=== PATIENT | female | born 1990 | race Caucasian/White ===

== ENCOUNTER → 2016-06-18 | Outpatient (REF) | payer BC | LOC: M LAB REF 16:29 | PROVIDERS: ATTEND Surgery | DX: Z02.89 Encounter for other administrative examinations (principal) ==

== ENCOUNTER → 2016-06-19 | Outpatient (CLI) | payer BC ==
[2016-06-19 14:20] LABS: BASO % 0.5 % (0.0-1.0); EOS % 0.6 % (0.0-3.0); LARGE UNSTAINED CELL # 0.2 K/mm3 (0.0-0.4); LARGE UNSTAINED CELL % 2.2 % (0.0-4.0); LYMPH % 28.2 % (24.0-44.0); MEAN CORPUSCULAR HEMOGLOBIN 31.2 pg (27.0-33.0); MEAN CORPUSCULAR HGB CONC 33.9 g/dl (32.0-36.5); MEAN CORPUSCULAR VOLUME 92.2 fl (80.0-96.0); MONO # 0.5 K/mm3 (0.0-0.8); MONO % 7.2 % (0.0-5.0); NEUTROPHILS # 4.3 K/mm3 (1.8-7.7); NEUTROPHILS % 61.3 % (36.0-66.0); PLATELET COUNT, AUTOMATED 399 k/mm3 (150-450); RED CELL DISTRIBUTION WIDTH 12.6 % (11.5-14.5)
[2016-06-20 10:30] LABS: HBsAg Prenatal NEGATIVE (NEGATIVE)
== END ==
LOC: M SMT 08:16
PROVIDERS: ATTEND Advanced Practice Midwife
DX: Z34.81 Encounter for supervision of other normal pregnancy, first trimester (principal)

== ENCOUNTER → 2016-08-17 | Outpatient (REF) | payer BC ==
[2016-08-17 18:07] LABS: FOLATE > 24.0 NG/ML (>5.4); VITAMIN B12 LEVEL 291 PG/ML (247-911)
[2016-08-24 12:12] LABS: PRETREATED FOLATE FOR RBCFOL 14.4 NG/ML
== END ==
LOC: M LAB REF 16:31
PROVIDERS: ATTEND Surgery
DX: O99.012 Anemia complicating pregnancy, second trimester (principal)

== ENCOUNTER → 2016-09-13 | Outpatient (CLI) | payer BC ==
--- NOTE | 2016-09-14 03:36 | REP ---
Clinical: Anatomical evaluation. Comparison: None . Findings: Examination demonstrates a single live intrauterine in breech presentation. motion is identified by technologist. Placenta is noted posteriorly and grade zero without evidence for placenta previa or abruption. Amniotic fluid volume is normal. Cervix measures 4.2 cm in length and appears closed. No evidence for nuchal cord. Gestational age by LMP 18 weeks 6 days with VALERIE 02/08/2017 . Gestational age by current measurements 18 weeks 5 days with VALERIE 02/09/2017 . FHR equals 160 beats per minute. BPD 4.3 cm 19 weeks 0 days HC 16.2 cm 19 weeks 0 days AC 15.2 cm 20 weeks 3-day FL 2.8 cm 18 weeks 4 days HL 2.6 cm 18 weeks 2 days HC/AC ratio 1.07 Estimated weight 295 grams ( 69th percentile). Anatomical assessment demonstrates normal structures including cranium, choroid plexus, cavum, cerebellum/posterior fossa, facial features, lungs, four-chamber heart/ventricular outflow tracts, diaphragm, stomach, cord insertion/three-vessel cord, kidneys/bladder, spine, and extremities. Impression: Single live intrauterine in breech presentation demonstrating appropriate interval growth. Anatomical assessment is complete and normal. Signed by Reji Ramos MD 09/14/2016 03:27 A
== END ==
LOC: M RAD 07:50
PROVIDERS: ATTEND Specialist
DX: Z34.82 Encounter for supervision of other normal pregnancy, second trimester (principal); Z3A.18 18 weeks gestation of pregnancy

== ENCOUNTER → 2016-11-06 | Outpatient (CLI) | payer BC ==
[2016-11-06 18:18] LABS: BASO % 0.3 % (0.0-1.0); EOS # 0.1 K/mm3 (0.0-0.50); EOS % 0.7 % (0.0-3.0); LARGE UNSTAINED CELL # 0.1 K/mm3 (0.0-0.4); LARGE UNSTAINED CELL % 0.9 % (0.0-4.0); LYMPH # 1.9 K/mm3 (1.5-6.5); LYMPH % 15.9 % (24.0-44.0); MEAN CORPUSCULAR HEMOGLOBIN 31.2 pg (27.0-33.0); MEAN CORPUSCULAR HGB CONC 33.5 g/dl (32.0-36.5); MEAN CORPUSCULAR VOLUME 93.1 fl (80.0-96.0); MONO # 0.5 K/mm3 (0.0-0.8); MONO % 4.2 % (0.0-5.0); NEUTROPHILS # 8.8 K/mm3 (1.8-7.7); NEUTROPHILS % 78.1 % (36.0-66.0); PLATELET COUNT, AUTOMATED 370 k/mm3 (150-450); RED CELL DISTRIBUTION WIDTH 13.9 % (11.5-14.5); WHITE BLOOD COUNT 11.3 K/mm3 (4.0-10.0)
== END ==
LOC: M LRY 09:23
PROVIDERS: ATTEND Obstetrics & Gynecology
DX: Z34.83 Encounter for supervision of other normal pregnancy, third trimester (principal)

== ENCOUNTER → 2017-01-15 | Outpatient (REF) | payer BC | LOC: M LAB REF 17:22 | PROVIDERS: ATTEND Obstetrics & Gynecology | DX: Z34.83 Encounter for supervision of other normal pregnancy, third trimester (principal) ==

== ENCOUNTER 2017-01-28 11:35 | Outpatient (CLI) | payer BC ==
[~2017-01-28] VITALS: Ht 154.9 cm; Wt 91.9 kg
[2017-01-28] MEDS ORDERED: PRENTAB9 PO (11:56)
[2017-01-28 12:01] VITALS: BP 137/91
[2017-01-28 12:10] VITALS: BP 136/86
[2017-01-28 12:51] LABS: MEAN CORPUSCULAR HEMOGLOBIN 30.3 pg (27.0-33.0); MEAN CORPUSCULAR HGB CONC 34.1 g/dl (32.0-36.5); MEAN CORPUSCULAR VOLUME 88.8 fl (80.0-96.0); PLATELET COUNT, AUTOMATED 325 10^3/uL (150-450); RED CELL DISTRIBUTION WIDTH 13.2 % (11.5-14.5); WHITE BLOOD COUNT 10.2 10^3/uL (4.0-10.0)
[2017-01-28 13:17] LABS: ALT/SGPT 14 U/L (12-78); AST/SGOT 18 U/L (7-37); BILIRUBIN,TOTAL 0.3 MG/DL (0.2-1.0); CREATININE FOR GFR 0.47 MG/DL (0.55-1.02); GLOMERULAR FILTRATION RATE > 60.0 (>60); URIC ACID 5.5 MG/DL (2.6-6.0)
[2017-01-28 13:19] VITALS: BP 131/77
[2017-01-28 14:20] VITALS: BP 136/82
[2017-01-28 15:24] VITALS: BP 131/82
== END 2017-01-28 15:55 | disposition home or self-care (01) ==
LOC: M LDO 11:35
PROVIDERS: ATTEND Advanced Practice Midwife
DX: O26.893 Other specified pregnancy related conditions, third trimester (principal); Z3A.38 38 weeks gestation of pregnancy; R03.0 Elevated blood-pressure reading, without diagnosis of hypertension; O13.3 Gestational [pregnancy-induced] hypertension without significant proteinuria, third trimester; Z88.0 Allergy status to penicillin; Z91.040 Latex allergy status

== ENCOUNTER 2017-01-29 17:54 | Inpatient (IN) | payer BC ==
[~2017-01-29] VITALS: Ht 154.9 cm; Wt 94.1 kg
[2017-01-29] VITALS (11 sets, daily range): BP systolic 125–140; BP diastolic 75–90
[~2017-01-29 17:54] MED LIST changes: -ACET50TA PO; -COLA100C5 PO; -IBUP-1114 PO
[2017-01-29] MEDS: miSOPROStol 50 MCG 1/2 TAB (S0191) SL SCH ×2 (19:25→23:02)
[2017-01-29 19:45] LABS: MEAN CORPUSCULAR HEMOGLOBIN 30.4 pg (27.0-33.0); MEAN CORPUSCULAR HGB CONC 34.1 g/dl (32.0-36.5); MEAN CORPUSCULAR VOLUME 89.2 fl (80.0-96.0); PLATELET COUNT, AUTOMATED 350 10^3/uL (150-450); RED CELL DISTRIBUTION WIDTH 13.4 % (11.5-14.5); WHITE BLOOD COUNT 11.5 10^3/uL (4.0-10.0)
--- NOTE | 2017-01-29 19:52 | HPE ---
DATE OF ADMISSION: 01/29/2017 26-year-old G1, P0 female 38-4/7 weeks gestation by 9 week ultrasound, estimated date of delivery (EDC) of 02/08/2017 presents for labor induction. Indication for induction less than 39 weeks is gestational hypertension. The patient denies contractions or vaginal bleeding. COURSE: The patient initiated care at 10 weeks of gestation on 07/06/2016. Her first trimester blood pressure was 118/70, weight 164 pounds. Her blood pressures were normal until 01/28/2017 when she had a blood pressure of 160/92 in the office. She was monitored in the hospital and sent home. The following day her blood pressure continued to be elevated at 146/96. A decision was made to proceed with labor induction. MEDICAL HISTORY: Noncontributory. SURGICAL HISTORY: [place] teeth removal. ALLERGIES: LATEX. AMOXICILLIN. SOCIAL HISTORY: The patient is . She lives in [place]. She denies cigarettes, alcohol, or drug use. FAMILY HISTORY: Noncontributory. PHYSICAL EXAMINATION: Blood pressure 140/90, pulse 84. She is in no apparent distress. Head and neck: Normal with the exception of some facial edema. Lungs are clear to auscultation. Heart: Regular rate and rhythm. Abdomen is nontender, gravid. heart sounds are category I. Sterile vaginal exam: 2 cm, 80%, - 2 station, posterior. Contractions: None. Extremities: Nontender with trace edema. LABS: Blood type is A+, rubella immune, RPR nonreactive. Diabetes screen: 120. GBS negative 01/15/2017. ASSESSMENT: 26-year-old G1, P0 female at 38-4/7 weeks gestation with gestational hypertension. The patient is admitted on 01/29/2017. Risks of induction were discussed.
[2017-01-29] MEDS ORDERED: LR 1,000 ML IV SCH (22:53)
[2017-01-29] MEDS ORDERED: OXYTOCIN DRIP 30 UNITS in APPROPRIATE DILUENT 1 EA IV SCH (23:00)
[2017-01-30] VITALS (27 sets, daily range): BP systolic 108–152; BP diastolic 58–92
[2017-01-30] MEDS ORDERED: FENTANYL 2MCG/ML ROPIVACAINE 0.2% IN 0.9% NACL 200ML IVBAG As Ordered ONE (00:03)
[2017-01-30] MEDS ORDERED: NALOXONE INJ 0.4 MG/1 ML VIAL (J2310) IV PRN (00:20)
[2017-01-30] MEDS ORDERED: LACTATED RINGER'S 1000 ML IV PRN (00:20)
[2017-01-30] MEDS ORDERED: EPIDURAL COMMENT XX SCH (00:20)
[2017-01-30] MEDS ORDERED: EPIDURAL/PCA KEYS XX PRN (00:20)
[2017-01-30] MEDS ORDERED: ONDANSETRON 4MG/2ML VIAL (J2405) IV PRN (00:20)
[2017-01-30] MEDS ORDERED: ePHEDrine SULFATE 25 MG/5 ML(5MG/ML) SYRINGE IV PRN (00:20)
[2017-01-30] MEDS ORDERED: FENTANYL/ROPIVACAINE/NACL BAG 200 ML EPIDURAL SCH (00:20)
[2017-01-30] MEDS ORDERED: REFRIGERATOR IV KEYS XX PRN (00:20)
[2017-01-30] MEDS ORDERED: diphenhydrAMINE INJ 50MG/ML VIAL (J1200) IV PRN (00:20)
[2017-01-30 06:29] LABS: CORD GAS ABE A -6.8; CORD GAS HCO3 A 18.5 MEQ/L; CORD GAS HCO3 V 16.4 MEQ/L; CORD GAS O2 SAT V 75.1 %; CORD GAS PCO2 A 36.8 mmHg; CORD GAS PCO2 V 34.5 mmHg; CORD GAS PH A 7.319 UNITS; CORD GAS PH V 7.295 UNITS; CORD GAS PO2 A 35.9 mmHg; CORD GAS PO2 V 35.4 mmHg; CORD GAS SBC A 18.5 MEQ/L; CORD GAS SBC V 16.9 MEQ/L; CORD GAS TCO2 A 19.6 MEQ/L; CORD GAS TCO2 V 17.5 MEQ/L
[2017-01-30] MEDS ORDERED: DIBUCAINE 1% OINTMENT 30GM TOP PRN (07:00)
[2017-01-30] MEDS ORDERED: MEASLES,MUMPS,RUBELLA VACCINE INJ (MMR-II) (90707) SC SCH (07:00)
[2017-01-30] MEDS ORDERED: ACETAMINOPHEN 500 MG TAB PO PRN (07:00)
[2017-01-30] MEDS ORDERED: LIDOCAINE 1% MDV INJ 50 ML VIAL INFIL ONE (07:00)
[2017-01-30] MEDS ORDERED: METHYLERGONOVINE MALEATE 0.2 MG TAB PO PRN (07:00)
[2017-01-30] MEDS ORDERED: OXYTOCIN DRIP 30 UNITS in APPROPRIATE DILUENT 1 EA IV ONE (07:00)
[2017-01-30] MEDS ORDERED: RHOGAM 300 MCG (1500 IU) INJ (J2790) IM SCH (07:00)
[2017-01-30] MEDS: PRENATAL VITAMINS CHEWABLE TABLET PO SCH (09:00)
--- NOTE | 2017-01-30 10:43 | DN ---
DATE: 01/30/2017 PREDELIVERY DIAGNOSIS: 38 and 4/7 weeks gestation, gestational hypertension. POSTDELIVERY DIAGNOSIS: Delivered. PROCEDURE: Outlet vacuum assisted vaginal delivery. SURGEON: Wilfred Ledezma MD ANESTHESIA: Epidural. ESTIMATED BLOOD LOSS: 300 cc FINDINGS: 7 pounds 10 ounce female . scores 3, 7, and 9. DELIVERY SUMMARY: After approximately 1-1/2 second stage, patient had arrest of descent at +3 station. She was also having recurrent bradycardia. Vacuum was applied at +3 station and delivery was accomplished with maternal effort and single control traction. Moderate shoulder dystocia was encountered. This was relieved with McRobert's maneuver, suprapubic pressure. The anterior shoulder was the right shoulder. Cord was doubly clamped and cut. The infant was handed off to the awaiting nurses. Placenta delivered spontaneously and appeared to be intact. The patient received IV Pitocin immediately after delivery of the placenta. A second degree perineal laceration was repaired with #2-0 chromic under local anesthesia in the usual fashion. Sponge and needle counts were correct. MTDD
[2017-01-30] MEDS: IBUPROFEN 800 MG TAB PO PRN (16:01)
[2017-01-30] MEDS ORDERED: SLF 3 ML SYR IV PRN (20:00)
[2017-01-30] MEDS: SLF 3 ML SYR IV SCH (20:44)
[2017-01-30] MEDS: DOCUSATE SODIUM 100 MG CAP PO PRN (20:44)
[2017-01-31 02:00] VITALS: BP 138/80
[2017-01-31] MEDS: SLF 3 ML SYR IV SCH (06:00)
[2017-01-31 06:05] VITALS: BP 127/85
[2017-01-31] MEDS: PRENATAL VITAMINS CHEWABLE TABLET PO SCH (08:40)
[2017-01-31] MEDS: IBUPROFEN 800 MG TAB PO PRN (08:42)
[2017-01-31 10:13] VITALS: BP 144/80
[2017-01-31 14:27] VITALS: BP 120/77
[2017-01-31 18:07] VITALS: BP 135/93
[2017-01-31 22:00] VITALS: BP 139/87
[2017-01-31] MEDS: DOCUSATE SODIUM 100 MG CAP PO PRN (22:29)
[2017-02-01 02:00] VITALS: BP 138/81
[2017-02-01 06:00] VITALS: BP 143/91
[2017-02-01] MEDS: PRENATAL VITAMINS CHEWABLE TABLET PO SCH (09:48)
[2017-02-01 10:12] VITALS: BP 143/79
[2017-02-01] MEDS ORDERED: IBUP-1114 PO (11:05)
[2017-02-01] MEDS ORDERED: COLA100C5 PO (11:05)
[2017-02-01] MEDS ORDERED: ACET50TA PO (11:05)
[2017-02-01 14:06] VITALS: BP 138/96
== END 2017-02-01 16:05 | disposition home or self-care (01) | DRG 560 ==
LOC: M LDI 17:54 → M OBS 01-30 08:52
PROVIDERS: ADMIT Specialist; ATTEND Specialist
PROC: 3E0DXGC Introduction of Other Therapeutic Substance into Mouth and Pharynx, External Approach (ICD-10-PCS; 2017-01-29)
PROC: 10D07Z6 Extraction of Products of Conception, Vacuum, Via Natural or Artificial Opening (ICD-10-PCS; principal; 2017-01-30)
PROC: 0KQM0ZZ Repair Perineum Muscle, Open Approach (ICD-10-PCS; 2017-01-30)
DX: O13.4 Gestational [pregnancy-induced] hypertension without significant proteinuria, complicating childbirth (principal); O76 Abnormality in fetal heart rate and rhythm complicating labor and delivery; Z37.0 Single live birth; Z3A.38 38 weeks gestation of pregnancy; Z88.0 Allergy status to penicillin; Z91.040 Latex allergy status; O62.0 Primary inadequate contractions; O66.0 Obstructed labor due to shoulder dystocia; O70.1 Second degree perineal laceration during delivery

== ENCOUNTER → 2017-01-29 | Outpatient (REF) | payer BC ==
[~2017-01-29] MED LIST: ACET50TA PO; COLA100C5 PO; IBUP-1114 PO; PRENTAB9 PO
[2017-01-29 15:48] LABS: CREATININE, SERUM 0.5 MG/DL (0.6-1.0)
[2017-01-29 16:14] LABS: CREATININE CLEARANCE, URINE 168.7 ML/MIN (75-115)
== END ==
LOC: M LAB REF 15:27
PROVIDERS: ATTEND Advanced Practice Midwife
DX: O13.3 Gestational [pregnancy-induced] hypertension without significant proteinuria, third trimester (principal)

== ENCOUNTER → 2017-12-20 | Outpatient (REF) | payer BC ==
[2017-12-25 14:49] LABS: HPV HYBRID CAPTURE II Negative (Negative)
== END ==
LOC: M SFHCWAGY 09:51
DX: Z12.4 Encounter for screening for malignant neoplasm of cervix (principal)

== ENCOUNTER 2018-10-30 16:42 | Emergency (ER) | payer BC ==
[~2018-10-30] VITALS: Ht 154.9 cm; Wt 74.9 kg
[~2018-10-30 16:42] MED LIST changes: +COLA100C5 PO; +IBUP-1114 PO; +MAPA500T2 PO
[2018-10-30 17:29] LABS: BASO % 0.4 % (0.0-1.0); EOS % 0.2 % (0.0-3.0); HEMATOCRIT 41.6 % (36.0-47.0); HEMOGLOBIN 14.3 g/dl (12.0-15.5); LYMPH # 2.3 10^3/uL (1.5-5.0); MEAN CORPUSCULAR HEMOGLOBIN 30.3 pg (27.0-33.0); MEAN CORPUSCULAR HGB CONC 34.4 g/dl (32.0-36.5); MEAN CORPUSCULAR VOLUME 88.1 fl (80.0-96.0); MONO # 0.7 10^3/uL (0.0-0.8); MONO % 6.8 % (0.0-5.0); NEUTROPHILS # 7.2 10^3/uL (1.5-8.5); NEUTROPHILS % 70.3 % (36.0-66.0); PLATELET COUNT, AUTOMATED 394 10^3/uL (150-450); RED BLOOD COUNT 4.72 10^6/uL (4.00-5.40); WHITE BLOOD COUNT 10.2 10^3/uL (4.0-10.0)
[2018-10-30 17:50] LABS: BLOOD UREA NITROGEN 9 MG/DL (7-18); CARBON DIOXIDE LEVEL 22 MEQ/L (21-32); CHLORIDE LEVEL 107 MEQ/L (98-107); CREATININE FOR GFR 0.65 MG/DL (0.55-1.30); GLOMERULAR FILTRATION RATE > 60.0 (>60); GLUCOSE, FASTING 92 MG/DL (70-100); POTASSIUM SERUM 3.6 MEQ/L (3.5-5.1); SODIUM LEVEL 142 MEQ/L (136-145)
[2018-10-30 19:46] LABS: HCG, SERUM QUANTITATIVE 16124 MIU/ML
--- NOTE | 2018-10-30 21:48 | REPVR ---
EXAM: US First Trimester, Transabdominal EXAM DATE/TIME: 10/30/2018 8:14 PM CLINICAL HISTORY: 28 years old, female; Lmp or gestational age (in weeks): 8 weeks 3 days; Other: Vaginal bleeding x 2 days; ; Additional info: Pelvic pain/spotting; Lmp-09/01/18 TECHNIQUE: Imaging protocol: Real-time transabdominal obstetrical ultrasound of the maternal pelvis and a first trimester , less than 14 weeks 0 days, with image documentation. COMPARISON: US OBS SINGEL GEST 09/13/2016 8:02 AM FINDINGS: GESTATION: Gestation: An intrauterine gestational sac can be identified on both sagittal images and transverse. Within the gestational sac there is a well-formed yolk sac and the uterus measures approximately 8.5 CM in length by 4.2 CM in thickness by 6 CM in transverse dimension. A pole is identified and estimated at 6 weeks 0 days utilizing Glade rump length. There is no cardiac activity identified within the pole. It is possible that this is very early in gestation and cardiac activity will be seen on a followup ultrasound. However, demise at 6 weeks is a strong possibility. By dates the poles should be 8 weeks 3 days, therefore, demise at 6 weeks is possible. Perhaps a followup scan would be the best approach to determine if there is going to be development of a normal pole and cardiac activity. Abdomen: There is only a small amount of urine in the urinary bladder, therefore the urinary bladder cannot be completely assessed. Right adnexa: The right ovary measures 4 CM in length x 1.8 CM in thickness. There is vascular flow of the right ovary. There is a 1.5 CM probable corpus luteum of the right ovary. Left adnexa: The left ovary measures 3.1 cm x 1.7 CM in thickness. There is vascular flow of the left ovary. IMPRESSION: 1. Intrauterine gestational sac with a pole measuring approximately 6 weeks gestation. However, no cardiac activity and this could represent demise. A followup scan would be helpful to determine if the patient is off on dates and a normal pole develops with cardiac activity. 2. Probable corpus luteum right ovary. Electronically signed by: Miguel Shi On 10/30/2018 21:47:57 PM
[2018-10-30 22:11] VITALS: BP 111/76
== END 2018-10-30 22:12 | disposition home or self-care (01) ==
LOC: M ED 16:42
DX: O20.0 Threatened abortion (principal); O16.9 Unspecified maternal hypertension, unspecified trimester; Z3A.01 Less than 8 weeks gestation of pregnancy; Z79.899 Other long term (current) drug therapy; Z88.0 Allergy status to penicillin; Z91.040 Latex allergy status

== ENCOUNTER → 2018-11-13 | Outpatient (CLI) | payer BC | LOC: M SMT 10:41 | PROVIDERS: ATTEND Advanced Practice Midwife | DX: O03.9 Complete or unspecified spontaneous abortion without complication (principal) ==

== ENCOUNTER → 2018-11-20 | Outpatient (CLI) | payer BC | LOC: M SMT 11:30 | PROVIDERS: ATTEND Advanced Practice Midwife | DX: O03.9 Complete or unspecified spontaneous abortion without complication (principal) ==

== ENCOUNTER → 2018-11-27 | Outpatient (CLI) | payer BC | LOC: M SMT 11:41 | PROVIDERS: ATTEND Advanced Practice Midwife | DX: O03.9 Complete or unspecified spontaneous abortion without complication (principal) ==

== ENCOUNTER → 2018-11-27 | Outpatient (CLI) | payer BC ==
[2018-11-27 13:41] LABS: FREE T4 1.07 NG/DL (0.76-1.46); THYROID STIMULATING HORMONE 3.75 uIU/ML (0.358-3.740)
[2018-11-27 13:42] LABS: TOTAL 25(OH) VITAMIN D 38.2 NG/ML (30.0-100.0)
== END ==
LOC: M SMT 11:39
PROVIDERS: ATTEND Family Medicine
DX: E55.9 Vitamin D deficiency, unspecified (principal); Z13.29 Encounter for screening for other suspected endocrine disorder

== ENCOUNTER → 2018-12-22 | Outpatient (REF) | payer BC | LOC: M SFHCWAGY 11:42 | PROVIDERS: ATTEND Nurse Practitioner Family | DX: Z12.4 Encounter for screening for malignant neoplasm of cervix (principal); R87.610 Atypical squamous cells of undetermined significance on cytologic smear of cervix (ASC-US) | CPT/HCPCS: 87624; G0123 ==

== ENCOUNTER → 2019-02-02 | Outpatient (REF) | payer BC | LOC: M SFHCWAGY 13:17 | PROVIDERS: ATTEND Nurse Practitioner Women's Health | DX: N87.0 Mild cervical dysplasia (principal); R87.610 Atypical squamous cells of undetermined significance on cytologic smear of cervix (ASC-US) ==

== ENCOUNTER → 2019-02-02 | Outpatient (REF) | payer BC | LOC: M PLALAB 11:29 | PROVIDERS: ATTEND Nurse Practitioner Women's Health | DX: R87.610 Atypical squamous cells of undetermined significance on cytologic smear of cervix (ASC-US) (principal) ==

== ENCOUNTER → 2019-04-22 | Outpatient (REF) | payer BC ==
[2019-04-22 14:20] LABS: HEMATOCRIT 38.2 % (36.0-47.0); HEMOGLOBIN 13.1 g/dl (12.0-15.5); MEAN CORPUSCULAR HEMOGLOBIN 30.5 pg (27.0-33.0); MEAN CORPUSCULAR HGB CONC 34.3 g/dl (32.0-36.5); PLATELET COUNT, AUTOMATED 325 10^3/uL (150-450); RED BLOOD COUNT 4.29 10^6/uL (4.00-5.40)
[2019-04-22 15:14] LABS: HEPATITIS B SURFACE ANTIGEN NEGATIVE (NEGATIVE); HEPATITIS C VIRUS ABY INDEX < 0.0 INDEX (<0.8); HIV 1&2 SCREEN CENTAUR NEGATIVE (NEGATIVE); RUBELLA IgG QUALITATIVE IMMUNE (IMMUNE)
[2019-04-22 17:17] LABS: CHLAMYDIA DNA AMPLIFICATION NEGATIVE (NEGATIVE); GC DNA AMPLIFICATION NEGATIVE (NEGATIVE)
== END ==
LOC: M PLALAB 11:03
PROVIDERS: ATTEND Obstetrics & Gynecology
DX: Z34.91 Encounter for supervision of normal pregnancy, unspecified, first trimester (principal); Z36.89 Encounter for other specified antenatal screening

== ENCOUNTER → 2019-06-05 | Outpatient (CLI) | payer BC ==
--- NOTE | 2019-06-05 13:38 | REP ---
REASON FOR EXAM: anatomy. Multiple ultrasonographic images of the gravid uterus show a single living intrauterine gestation in variable position. Doppler interrogation of the heart shows a heart rate of 135 beats per minute. The placenta is posterior and not low lying. The cervix measures 4.3 cm in length and is closed. Evaluation of the maternal adnexal spaces show no abnormalities. BPD 4.2 cm = 18 weeks 6 days HC 15.5 cm = 18 weeks 3 days AC 13.8 cm = 19 weeks 2 days FL 3.0 cm = 19 weeks 2 days The estimated weight is 275 grams which is at the 53rd percentile for 19 weeks 0 day gestational age. anatomical structures seen to be unremarkable are as follows: Cerebral ventricles, spine, four-chamber heart, left ventricular outflow tract, upper lip, and extremities. The structures suboptimally visualized are as follows: Thalami, cavum septum pellucidum, cerebellum, cisterna magna, three-vessel umbilical cord, cord insertion, right ventricular outflow tract, urinary bladder, kidneys, and stomach. IMPRESSION: Single living intrauterine gestation as described above with an estimated gestational age of 18 weeks 6 days via composite criteria and an estimated date of delivery of 10/31/2019 by today's exam. No anomalies were detected, however, recommend a followup examination to better visualize all structures not well seen today as described above. It is recommended that the followup examination be performed at 20-22 weeks gestation.
== END ==
LOC: M WHC 09:02
PROVIDERS: ATTEND Advanced Practice Midwife
DX: Z34.92 Encounter for supervision of normal pregnancy, unspecified, second trimester (principal)

== ENCOUNTER → 2019-06-17 | Outpatient (CLI) | payer BC ==
--- NOTE | 2019-06-17 14:52 | REP ---
OBSTETRIC SONOGRAPHY: HISTORY: Supervision of followup anatomy. 20 weeks gestation. Comparison study June 05, 2019. FINDINGS: Scanning through the gravid uterus demonstrates a single living intrauterine gestation in a transverse lie, head to the maternal left. motion is observed and heart rate is recorded at 140 beats per minute. A posterior fundal placenta is seen grade 0 without evidence of previa or abruption. Amniotic fluid is subjectively normal. Closed cervical length measures 4.4 cm. No extrauterine abnormality is observed. There has been appropriate interval growth. No anomaly is seen. The following anatomic structures are identified today and felt to be unremarkable: cranium, choroid plexus, cavum, cerebellum and posterior fossa, four-chamber heart with left and right ventricular outflow tract views, left-sided stomach, abdominal wall cord insertion, three-vessel cord, kidneys and bladder. Biometry Chart: BPD 4.7 cm = 20 weeks 2 days HC 17.6 cm = 20 weeks 1 day AC 15.2 cm = 20 weeks 3 days FL 3.3 cm = 20 weeks 1 day HL 3.1 cm = 20 weeks 3 days CD 1.8 cm = 18 weeks 1 day HC/AC ratio normal 1.16. Cephalic index normal 0.75. Estimated weight 244 grams, 0 pounds 12 ounces, 32nd percentile for 20 weeks 5 days. IMPRESSION: Viable single intrauterine gestation at 20 weeks 5 days by comparison prior sonography. VALERIE by prior sonography October 30, 2019. In conjunction with the prior exam, anatomic survey is felt to be complete.
== END ==
LOC: M WHC 08:30
PROVIDERS: ATTEND Nurse Practitioner Women's Health
DX: Z36.2 Encounter for other antenatal screening follow-up (principal); Z3A.20 20 weeks gestation of pregnancy; O32.2XX0 Maternal care for transverse and oblique lie, not applicable or unspecified

== ENCOUNTER → 2019-08-12 | Outpatient (REF) | payer BC ==
[~2019-08-12] MED LIST changes: +ACET-683 PO; +IBUP80TA PO
[2019-08-12 15:05] LABS: HEMATOCRIT 37.2 % (36.0-47.0); HEMOGLOBIN 12.2 g/dl (12.0-15.5); MEAN CORPUSCULAR HEMOGLOBIN 30.7 pg (27.0-33.0); MEAN CORPUSCULAR HGB CONC 32.8 g/dl (32.0-36.5); MEAN CORPUSCULAR VOLUME 93.7 fl (80.0-96.0); PLATELET COUNT, AUTOMATED 321 10^3/uL (150-450); RED BLOOD COUNT 3.97 10^6/uL (4.00-5.40); WHITE BLOOD COUNT 7.5 10^3/uL (4.0-10.0)
== END ==
LOC: M PLALAB 08:26
PROVIDERS: ATTEND Advanced Practice Midwife
DX: Z34.82 Encounter for supervision of other normal pregnancy, second trimester (principal)

== ENCOUNTER → 2019-10-08 | Outpatient (REF) | payer BC | LOC: M LAB REF 15:15 | PROVIDERS: ATTEND Specialist | DX: Z34.83 Encounter for supervision of other normal pregnancy, third trimester (principal); Z3A.00 Weeks of gestation of pregnancy not specified ==

== ENCOUNTER 2019-11-01 10:07 | Inpatient (IN) | payer BC ==
[~2019-11-01] VITALS: Ht 154.9 cm; Wt 82.7 kg
[~2019-11-01 10:07] MED LIST changes: -ACET-683 PO; -IBUP80TA PO
[2019-11-01 11:13] LABS: HEMATOCRIT 36.9 % (36.0-47.0); HEMOGLOBIN 12.9 g/dl (12.0-15.5); MEAN CORPUSCULAR HEMOGLOBIN 30.9 pg (27.0-33.0); MEAN CORPUSCULAR VOLUME 88.5 fl (80.0-96.0); PLATELET COUNT, AUTOMATED 310 10^3/uL (150-450); RED BLOOD COUNT 4.17 10^6/uL (4.00-5.40); WHITE BLOOD COUNT 13.6 10^3/uL (4.0-10.0)
[2019-11-01] MEDS ORDERED: FENTANYL 2MCG/ML ROPIVACAINE 0.2% IN 0.9% NACL 100ML IVBAG As Ordered ONE (11:56)
[2019-11-01] MEDS: LR 1,000 ML IV SCH ×3 (12:20→18:53)
--- NOTE | 2019-11-01 12:46 | HPEPDOC ---
Obstetrical History & Physical General Date of Admission Nov 01, 2019 at 10:43 History of Present Illness 29-year-old 3, para 1 who presents at 40 weeks 2 days estimated gestational age for complaints of contraction. She reports contractions throughout the day that of increasing intensity and frequency. She reports activ e movements. Denies any vaginal bleeding or leakage of fluid. Chief Complaint: Contractions, term Care Care: Good Care Dating Final EDC: Nov 06, 2019 EGA at Admission: 40 Past Medical History Past Obstetrical History : Past Obstetrical History: Multigravida Type of Delivery: Spontaneous Vaginal Del. 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 BREAST: . ABDOMEN: Gravid and non-tender to touch. FETUS: Is vertex (VTX) by sterile vaginal examination (SVE), fetus is vertex (VTX) by Brennan. HEART RATE: Regular rate and rhythm. LUNGS: Clear to auscultation (CTA). Laboratory Data 24H LABS Laboratory Tests 2 11/01/19 10:50: Nucleated Red Blood Cells % (auto) 0.0 11/01/19 10:52: Serology Scanned Report Hepatitis B Testing CBC/BMP Laboratory Tests 11/01/19 10:50 Pertinent Laboratoy Data Blood Type: A+ HIV: Negative Hepatitis B: Negative Hepatitis C: Negative Rapid Plasma Reagin: Nonreactive Rubella: Nonreactive Chlamydia/Gonorrhea: Negative Group B Streptococcus: Negative Anatomy Ultrasound Placenta Location: Posterior Normal Anatomy: Yes Placenta Previa: No Vaginal Examination Dilation: 5 cm Effacement: 70% Station: -1 Cervical Consistency: Soft Cervical Position: Middle Presentation: Cephalic presentation Assessment Variability: Moderate Accelerations: Positive Tocometer Frequency: regular Assessment/Plan Assessment 29-year-old 3, para 1 at 40 weeks 2 days estimated gestational age in active labor. Reassuring status. Plan Admit and orient. 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 Diet: Regular. Group B Streptococcus (GBS) negative. Labs and intravenous (IV) per unit protocol. Counseled on Pitocin and induction of labor (IOL). Anticipate normal spontaneous delivery (). C-S as appropriate. TRISTIAN LOVE MD. Nov 01, 2019 12:46
[2019-11-01] MEDS ORDERED: ONDANSETRON 4MG/2ML VIAL IV PRN (14:00)
[2019-11-01] MEDS ORDERED: REFRIGERATOR IV KEYS XX PRN (14:00)
[2019-11-01] MEDS ORDERED: EPIDURAL/PCA KEYS XX PRN (14:00)
[2019-11-01] MEDS ORDERED: EPIDURAL COMMENT XX SCH (14:00)
[2019-11-01] MEDS ORDERED: LR 1,000 ML IV ONE (14:00)
[2019-11-01] MEDS ORDERED: LACTATED RINGER'S 1000 ML IV PRN (14:00)
[2019-11-01] MEDS ORDERED: diphenhydrAMINE 50MG/ML VIAL (J1200) IV PRN (14:00)
[2019-11-01] MEDS ORDERED: NALOXONE INJ 0.4MG/1ML VIAL (J2310 PER 1MG) IV PRN (14:00)
[2019-11-01] MEDS ORDERED: OXYTOCIN DRIP 30 UNITS in IV 1 EA IV SCH ×2 (14:00→20:14)
[2019-11-01] MEDS ORDERED: FENTANYL/ROPIVACAINE/NACL BAG 100 ML EPIDURAL SCH (14:00)
[2019-11-01] MEDS: ePHEDrine SULFATE 25 MG/5 ML(5MG/ML) SYRINGE IV PRN ×3 (14:04→14:37)
[2019-11-01] MEDS ORDERED: ePHEDrine SULFATE 25 MG/5 ML(5MG/ML) SYRINGE IV PRN (15:45)
[2019-11-01 19:53] LABS: CORD GAS ABE A -3.2; CORD GAS HCO3 A 20.9 MEQ/L; CORD GAS PCO2 A 35.3 mmHg; CORD GAS PH A 7.391 UNITS; CORD GAS PO2 A 38.3 mmHg; CORD GAS SBC A 21.4 MEQ/L
[2019-11-01 19:55] LABS: CORD GAS ABE V -3.8; CORD GAS HCO3 V 20.2 MEQ/L; CORD GAS O2 SAT V 79.9 %; CORD GAS PH V 7.392 UNITS; CORD GAS PO2 V 37.8 mmHg; CORD GAS SBC V 20.9 MEQ/L; CORD GAS TCO2 V 21.3 MEQ/L
--- NOTE | 2019-11-01 20:14 | DNPDOC ---
[facility] Delivery Note Delivery Note DATE OF DELIVERY: 11/01/2019 TIME OF : 193 GENDER:, Female. APGARS:, 9 and 9. WEIGHT: 3510 grams or 7 pounds 12 ounces. LACERATIONS: None ANESTHESIA: Epidural. ESTIMATED BLOOD LOSS:. 200 mL COUNTS: 5 laparotomy sponges accounted for prior to after delivery. DELIVERY NOTE: On 11/01/2019 at 1934, 29-year-old 2 now para 2, had a spontaneous vaginal delivery of viable female , Apgars, 9 a nd 9. Weight was 3510 g or 7 lbs. 12 oz. Head was delivered occiput anterior (OA) . Nuchal cord was manually reduced, followed by delivery of the shoulders and corpus. Infant was handed to mom with a good cry. Cord was clamped times two and was cut by the father of baby. Placenta was then drained and delivered grossly intact. A premixed bag of 500 mL of normal saline with 30 units of Pitocin was then bolused along with uterine massage until the uterus was firm. On inspection, cervix, vagina, perineum was grossly intact and hemostatic. Mom and baby in recovery on stable condition. TRISTIAN LOVE MD. Nov 01, 2019 20:14
[2019-11-01] MEDS ORDERED: METHYLERGONOVINE MALEATE 0.2 MG TAB PO PRN (20:15)
[2019-11-01] MEDS ORDERED: DOCUSATE SODIUM 100 MG CAP PO PRN (20:15)
[2019-11-01] MEDS ORDERED: ACETAMINOPHEN TAB 650MG DOSE (2X325MG) PO PRN (20:15)
[2019-11-01] MEDS ORDERED: IBUPROFEN 800 MG TAB PO PRN (20:15)
[2019-11-01] MEDS ORDERED: MEASLES,MUMPS,RUBELLA VACCINE INJ (MMR-II) (90707) SC SCH (20:15)
[2019-11-01] MEDS ORDERED: ACETAMINOPHEN 500 MG TAB PO PRN (20:15)
[2019-11-01] MEDS ORDERED: DIBUCAINE 1% OINTMENT 30GM TOP PRN (20:15)
[2019-11-01] MEDS ORDERED: IBUPROFEN 600MG TAB PO PRN (20:15)
[2019-11-01] MEDS ORDERED: RHOGAM 300 MCG (1500 IU) INJ (J2790) IM SCH (20:15)
[2019-11-01 22:02] VITALS: BP 120/71
[2019-11-01] MEDS ORDERED: diphenhydrAMINE 25MG CAP PO PRN (23:45)
--- NOTE | 2019-11-02 04:21 | IPNPDOC ---
Progress Note Date of Service: Nov 02, 2019 Day#: 1 Progress Note SUBJECT: Doing well without complaints. Ambulating, voiding and pain is well- controlled. Reports minimal lochia. +breast feeding OBJECTIVE: VITAL SIGNS: Within normal limits, afebrile. Alert and oriented times three. Abdomen: Fundus firm at U-2. Soft, NTTP. Ext: neg calf tenderness. ASSESSMENT: day #1 status post normal spontaneous vaginal delivery. Recovering in stable condition. PLAN: 1. Continue routine care 2. Discharge plans for tomorrow VS, I&O, 24H, Fishbone Vital Signs/I&O Vital Signs Date Time Temp Pulse Resp B/P (MAP) Pulse Ox O2 Delivery O2 Flow Rate FiO2 11/01/19 22:02 99.0 101 18 120/71 (87) I&O- Last 24 Hours up to 6 AM 11/02/19 06:00 Intake Total 3913 ml Output Total 1925 ml Balance 1988 ml Laboratory Data 24H LABS Laboratory Tests 2 11/01/19 10:50: Nucleated Red Blood Cells % (auto) 0.0 11/01/19 10:52: Serology Scanned Report Hepatitis B Testing 11/01/19 19:46: Cord Arterial Blood pH 7.391, Cord Arterial Blood PCO2 35.3, Cord Arterial Blood PO2 38.3, Cord Arterial Blood HCO3 20.9, Cord Arterial Blood Total CO2 22.0, Cord Arterial Blood Base Excess -3.2, Cord Arterial Base Excess (Standard 21.4, Cord Arterial Bld Oxygen Saturation 81.0, Cord Venous Blood pH 7.392, Cord Venous Blood PCO2 34.0, Cord Venous Blood PO2 37.8, Cord Venous Blood HCO3 20.2, Cord Venous Blood Total CO2 21.3, Cord Venous Base Excess (Actual) -3.8, Cord Venous Base Excess (Standard) 20.9, Cord Venous Blood Oxygen Saturation 79.9 CBC/BMP Laboratory Tests 11/01/19 10:50 TRISTIAN LOVE MD. Nov 02, 2019 04:20
[2019-11-02 05:53] VITALS: BP 98/64
[2019-11-02] MEDS: PRENATAL VITAMINS CHEWABLE TABLET PO SCH (08:38)
[2019-11-02] MEDS ORDERED: INFLUENZA QUADRIVALENT PF VACCINE 0.5ML SYRINGE IM ONE (09:00)
[2019-11-02 17:45] VITALS: BP 116/72
[2019-11-03] MEDS ORDERED: IBUP80TA PO (03:22)
[2019-11-03] MEDS ORDERED: ACET-683 PO (03:22)
[2019-11-03 06:00] VITALS: BP 134/83
[2019-11-03] MEDS: PRENATAL VITAMINS CHEWABLE TABLET PO SCH (08:19)
[2019-11-03] MEDS ORDERED: INFLUENZA QUADRIVALENT PF VACCINE 0.5ML SYRINGE IM ONE (09:00)
== END 2019-11-03 10:30 | disposition home or self-care (01) | DRG 560 ==
LOC: M LDO 10:07 → M LDI 10:43 → M OBS 21:27
PROVIDERS: ADMIT Obstetrics & Gynecology; ATTEND Obstetrics & Gynecology
PROC: 10E0XZZ Delivery of Products of Conception, External Approach (ICD-10-PCS; principal; 2019-11-01)
DX: O48.0 Post-term pregnancy (principal); O69.81X0 Labor and delivery complicated by cord around neck, without compression, not applicable or unspecified; Z3A.40 40 weeks gestation of pregnancy; Z37.0 Single live birth

== ENCOUNTER → 2019-12-07 | Outpatient (CLI) | payer BC ==
[~2019-12-07] MED LIST changes: +ACET-683 PO; +IBUP80TA PO
[2019-12-07 15:04] LABS: BASO # 0.1 10^3/uL (0.0-0.2); BASO % 0.4 % (0.0-1.0); EOS # 0.1 10^3/uL (0.0-0.5); EOS % 0.9 % (0.0-3.0); HEMATOCRIT 41.1 % (36.0-47.0); HEMOGLOBIN 13.9 g/dl (12.0-15.5); LYMPH # 2.7 10^3/uL (1.5-5.0); LYMPH % 23.2 % (24.0-44.0); MEAN CORPUSCULAR HEMOGLOBIN 30.3 pg (27.0-33.0); MEAN CORPUSCULAR HGB CONC 33.8 g/dl (32.0-36.5); MEAN CORPUSCULAR VOLUME 89.7 fl (80.0-96.0); MONO # 0.8 10^3/uL (0.0-0.8); MONO % 6.7 % (0.0-5.0); NEUTROPHILS # 7.8 10^3/uL (1.5-8.5); NEUTROPHILS % 68.4 % (36.0-66.0); PLATELET COUNT, AUTOMATED 324 10^3/uL (150-450); RED BLOOD COUNT 4.58 10^6/uL (4.00-5.40); WHITE BLOOD COUNT 11.4 10^3/uL (4.0-10.0)
[2019-12-07 15:55] LABS: ALBUMIN 3.8 GM/DL (3.2-5.2); ALT/SGPT 23 U/L (12-78); BILIRUBIN,TOTAL 0.4 MG/DL (0.2-1.0); BLOOD UREA NITROGEN 12 MG/DL (7-18); CALCIUM LEVEL 9.3 MG/DL (8.5-10.1); CARBON DIOXIDE LEVEL 27 MEQ/L (21-32); CHLORIDE LEVEL 108 MEQ/L (98-107); CREATININE FOR GFR 0.78 MG/DL (0.55-1.30); FREE T4 0.84 NG/DL (0.76-1.46); GLOMERULAR FILTRATION RATE > 60.0 (>60); GLUCOSE, FASTING 78 MG/DL (70-100); POTASSIUM SERUM 3.9 MEQ/L (3.5-5.1); SODIUM LEVEL 140 MEQ/L (136-145); TOTAL 25(OH) VITAMIN D 31.3 NG/ML (30.0-100.0); TOTAL PROTEIN 7.2 GM/DL (6.4-8.2)
== END ==
LOC: M PLALAB 12:21
PROVIDERS: ATTEND Family Medicine
DX: E55.9 Vitamin D deficiency, unspecified (principal); Z13.29 Encounter for screening for other suspected endocrine disorder; Z13.0 Encounter for screening for diseases of the blood and blood-forming organs and certain disorders involving the immune mechanism

== ENCOUNTER → 2020-01-25 | Outpatient (REF) | payer BC | LOC: M SFHCWAGY 13:18 | PROVIDERS: ATTEND Nurse Practitioner Family | DX: Z12.4 Encounter for screening for malignant neoplasm of cervix (principal) ==

== ENCOUNTER → 2021-01-23 | Outpatient (CLI) | payer BC ==
[2021-01-23 13:14] LABS: BASO # 0.1 10^3/uL (0.0-0.2); BASO % 0.9 % (0.0-1.0); EOS # 0.1 10^3/uL (0.0-0.5); EOS % 1.7 % (0.0-3.0); HEMATOCRIT 41.9 % (36.0-47.0); HEMOGLOBIN 13.8 g/dl (12.0-15.5); LYMPH % 36.8 % (24.0-44.0); MEAN CORPUSCULAR HEMOGLOBIN 29.4 pg (27.0-33.0); MEAN CORPUSCULAR HGB CONC 32.9 g/dl (32.0-36.5); MEAN CORPUSCULAR VOLUME 89.1 fl (80.0-96.0); MONO # 0.4 10^3/uL (0.0-0.8); MONO % 7.7 % (2.0-8.0); NEUTROPHILS # 2.9 10^3/uL (1.5-8.5); NEUTROPHILS % 52.5 % (36.0-66.0); PLATELET COUNT, AUTOMATED 334 10^3/uL (150-450); WHITE BLOOD COUNT 5.4 10^3/uL (4.0-10.0)
[2021-01-23 14:15] LABS: ALBUMIN 4.1 GM/DL (3.2-5.2); ALT/SGPT 27 U/L (12-78); BILIRUBIN,TOTAL 0.4 MG/DL (0.2-1.0); BLOOD UREA NITROGEN 14 MG/DL (7-18); CALCIUM LEVEL 9.7 MG/DL (8.5-10.1); CARBON DIOXIDE LEVEL 26 MEQ/L (21-32); CHLORIDE LEVEL 106 MEQ/L (98-107); CREATININE FOR GFR 0.62 MG/DL (0.55-1.30); FREE T4 0.78 NG/DL (0.76-1.46); GLOMERULAR FILTRATION RATE > 60.0 (>60); GLUCOSE, FASTING 88 MG/DL (70-100); SODIUM LEVEL 140 MEQ/L (136-145); TOTAL PROTEIN 7.7 GM/DL (6.4-8.2)
== END ==
LOC: M PLALAB 09:14
PROVIDERS: ATTEND Family Medicine
DX: E55.9 Vitamin D deficiency, unspecified (principal); Z13.29 Encounter for screening for other suspected endocrine disorder; Z13.0 Encounter for screening for diseases of the blood and blood-forming organs and certain disorders involving the immune mechanism

== ENCOUNTER → 2021-02-06 | Outpatient (REF) | payer BC | LOC: M SFHCWAGY 17:15 | PROVIDERS: ATTEND Nurse Practitioner Women's Health | DX: Z12.4 Encounter for screening for malignant neoplasm of cervix (principal) | CPT/HCPCS: 87624; G0123 ==

== ENCOUNTER → 2022-03-16 | Outpatient (CLI) | payer BC ==
[2022-03-16 10:26] LABS: BASO % 0.5 % (0.0-1.0); EOS # 0.1 10^3/uL (0.0-0.5); EOS % 1.6 % (0.0-3.0); HEMATOCRIT 39.7 % (36.0-47.0); HEMOGLOBIN 13.2 g/dl (12.0-15.5); LYMPH # 2.1 10^3/uL (1.5-5.0); LYMPH % 33.9 % (24.0-44.0); MEAN CORPUSCULAR HEMOGLOBIN 29.5 pg (27.0-33.0); MEAN CORPUSCULAR HGB CONC 33.2 g/dl (32.0-36.5); MEAN CORPUSCULAR VOLUME 88.8 fl (80.0-96.0); MONO # 0.5 10^3/uL (0.0-0.8); MONO % 7.2 % (2.0-8.0); NEUTROPHILS # 3.6 10^3/uL (1.5-8.5); NEUTROPHILS % 56.6 % (36.0-66.0); PLATELET COUNT, AUTOMATED 408 10^3/uL (150-450); RED BLOOD COUNT 4.47 10^6/uL (4.00-5.40); WHITE BLOOD COUNT 6.3 10^3/uL (4.0-10.0)
[2022-03-16 10:42] LABS: ALBUMIN 4.2 G/DL (3.2-5.2); ALKALINE PHOSPHATASE 74 U/L (46-116); ALT/SGPT 20 U/L (7.0-40); AST/SGOT 19 U/L (<34); BILIRUBIN,TOTAL 0.6 MG/DL (0.3-1.2); BLOOD UREA NITROGEN 18 MG/DL (9-23); CALCIUM LEVEL 9.1 MG/DL (8.5-10.1); CARBON DIOXIDE LEVEL 28 MMOL/L (20-31); CHLORIDE LEVEL 106 MMOL/L (98-107); CREATININE FOR GFR 0.73 MG/DL (0.55-1.30); GLOMERULAR FILTRATION RATE > 60.0 (>60); GLUCOSE, FASTING 87 MG/DL (60-100); SODIUM LEVEL 139 MMOL/L (136-145); TOTAL PROTEIN 7.6 G/DL (5.7-8.2)
[2022-03-16 10:47] LABS: FREE T4 0.92 NG/DL (0.89-1.76); THYROID STIMULATING HORMONE 3.182 uIU/ML (0.55-4.78)
[2022-03-16 10:48] LABS: TOTAL 25(OH) VITAMIN D 28.6 NG/ML (20.0-100.0)
== END ==
LOC: M WUC 09:22
PROVIDERS: ATTEND Family Medicine
DX: E55.9 Vitamin D deficiency, unspecified (principal); Z13.29 Encounter for screening for other suspected endocrine disorder; Z13.0 Encounter for screening for diseases of the blood and blood-forming organs and certain disorders involving the immune mechanism

== ENCOUNTER → 2023-02-15 | Outpatient (CLI) | payer BC ==
[2023-02-15 12:45] LABS: BASO % 0.4 % (0.0-1.0); EOS % 0.6 % (0.0-3.0); HEMATOCRIT 39.5 % (36.0-47.0); HEMOGLOBIN 13.4 g/dl (12.0-15.5); LYMPH # 1.6 10^3/uL (1.5-5.0); LYMPH % 24.3 % (24.0-44.0); MEAN CORPUSCULAR HEMOGLOBIN 30.2 pg (27.0-33.0); MEAN CORPUSCULAR HGB CONC 33.9 g/dl (32.0-36.5); MEAN CORPUSCULAR VOLUME 89.2 fl (80.0-96.0); MONO # 0.5 10^3/uL (0.0-0.8); MONO % 7.5 % (2.0-8.0); NEUTROPHILS # 4.5 10^3/uL (1.5-8.5); NEUTROPHILS % 66.8 % (36.0-66.0); PLATELET COUNT, AUTOMATED 351 10^3/uL (150-450); RED BLOOD COUNT 4.43 10^6/uL (4.00-5.40); WHITE BLOOD COUNT 6.7 10^3/uL (4.0-10.0)
[2023-02-15 13:16] LABS: ALBUMIN 3.9 G/DL (3.2-5.2); ALKALINE PHOSPHATASE 58 U/L (46-116); ALT/SGPT 19 U/L (7.0-40); AST/SGOT 11 U/L (<34); BILIRUBIN,TOTAL 0.5 MG/DL (0.3-1.2); BLOOD UREA NITROGEN 9 MG/DL (9-23); CALCIUM LEVEL 8.9 MG/DL (8.5-10.1); CARBON DIOXIDE LEVEL 24 MMOL/L (20-31); CHLORIDE LEVEL 106 MMOL/L (98-107); CREATININE FOR GFR 0.52 MG/DL (0.55-1.30); GLOMERULAR FILTRATION RATE > 60.0 (>60); GLUCOSE, FASTING 83 MG/DL (60-100); POTASSIUM SERUM 3.8 MMOL/L (3.5-5.1); SODIUM LEVEL 138 MMOL/L (136-145); THYROID STIMULATING HORMONE 3.382 uIU/ML (0.55-4.78); TOTAL 25(OH) VITAMIN D 38.1 NG/ML (20.0-100.0); TOTAL PROTEIN 6.9 G/DL (5.7-8.2)
[2023-02-15 13:17] LABS: FREE T4 0.91 NG/DL (0.89-1.76)
== END ==
LOC: M WUC 09:07
PROVIDERS: ATTEND Family Medicine
DX: Z13.29 Encounter for screening for other suspected endocrine disorder (principal); Z13.0 Encounter for screening for diseases of the blood and blood-forming organs and certain disorders involving the immune mechanism; E55.9 Vitamin D deficiency, unspecified

== ENCOUNTER → 2023-03-08 | Outpatient (CLI) | payer BC ==
[2023-03-08 16:23] LABS: HEMATOCRIT 37.9 % (36.0-47.0); HEMOGLOBIN 13.2 g/dl (12.0-15.5); MEAN CORPUSCULAR HEMOGLOBIN 30.6 pg (27.0-33.0); MEAN CORPUSCULAR HGB CONC 34.8 g/dl (32.0-36.5); MEAN CORPUSCULAR VOLUME 87.7 fl (80.0-96.0); PLATELET COUNT, AUTOMATED 359 10^3/uL (150-450); RED BLOOD COUNT 4.32 10^6/uL (4.00-5.40); WHITE BLOOD COUNT 7.9 10^3/uL (4.0-10.0)
[2023-03-08 16:44] LABS: URIC ACID 3.3 MG/DL (3.1-7.8)
[2023-03-08 16:46] LABS: LDH LACTATE DEHYDROGENASE 168 U/L (120-246)
[2023-03-08 16:47] LABS: ALT/SGPT 23 U/L (7.0-40); AST/SGOT 12 U/L (<34); BILIRUBIN,TOTAL 0.4 MG/DL (0.3-1.2); CREATININE FOR GFR 0.51 MG/DL (0.55-1.30); CREATININE,RANDOM URINE 27.4 MG/DL; GLOMERULAR FILTRATION RATE > 60.0 (>60)
[2023-03-08 16:52] LABS: TOTAL PROTEIN,RANDOM URINE < 6.0 MG/DL (0.0-14.0)
[2023-03-08 17:22] LABS: HIV 1&2 SCREEN NEGATIVE (NEGATIVE)
[2023-03-08 17:29] LABS: HEPATITIS C VIRUS ABY INDEX < 0.02 INDEX (<0.8)
== END ==
LOC: M PLALAB 14:10
PROVIDERS: ATTEND Advanced Practice Midwife
DX: Z34.91 Encounter for supervision of normal pregnancy, unspecified, first trimester (principal)

== ENCOUNTER → 2023-03-29 | Outpatient (CLI) | payer BC | LOC: M PLALAB 13:32 | PROVIDERS: ATTEND Advanced Practice Midwife | DX: Z34.92 Encounter for supervision of normal pregnancy, unspecified, second trimester (principal) ==

== ENCOUNTER → 2023-04-19 | Outpatient (CLI) | payer BC | LOC: M WHC 14:03 | PROVIDERS: ATTEND Advanced Practice Midwife | DX: Z34.92 Encounter for supervision of normal pregnancy, unspecified, second trimester (principal) ==

== ENCOUNTER → 2023-05-24 | Outpatient (CLI) | payer BC ==
[2023-05-24 15:24] LABS: HEMATOCRIT 35.6 % (36.0-47.0); HEMOGLOBIN 11.9 g/dl (12.0-15.5); MEAN CORPUSCULAR HEMOGLOBIN 30.3 pg (27.0-33.0); MEAN CORPUSCULAR HGB CONC 33.4 g/dl (32.0-36.5); MEAN CORPUSCULAR VOLUME 90.6 fl (80.0-96.0); PLATELET COUNT, AUTOMATED 338 10^3/uL (150-450); RED BLOOD COUNT 3.93 10^6/uL (4.00-5.40); WHITE BLOOD COUNT 10.7 10^3/uL (4.0-10.0)
[2023-05-24 17:23] LABS: GC DNA AMPLIFICATION NEGATIVE (NEGATIVE)
== END ==
LOC: M PLALAB 12:17
PROVIDERS: ATTEND Specialist
DX: Z34.82 Encounter for supervision of other normal pregnancy, second trimester (principal)

== ENCOUNTER → 2023-06-10 | Outpatient (CLI) | payer BC | LOC: M LAB 07:34 | PROVIDERS: ATTEND Specialist | DX: Z34.82 Encounter for supervision of other normal pregnancy, second trimester (principal) ==

== ENCOUNTER → 2023-08-12 | Outpatient (REF) | payer BC | LOC: M SFHCWAGY 16:51 | PROVIDERS: ATTEND Obstetrics & Gynecology | DX: Z36.85 Encounter for antenatal screening for Streptococcus B (principal); Z3A.35 35 weeks gestation of pregnancy ==

== ENCOUNTER 2023-09-11 05:02 | Inpatient (IN) | payer BC ==
[2023-09-11] VITALS (24 sets, daily range): BP systolic 106–128; BP diastolic 53–79; O2SAT 98
[~2023-09-11] VITALS: Ht 157.5 cm; Wt 87.0 kg
[2023-09-11 06:34] LABS: HEMATOCRIT 35.8 % (36.0-47.0); HEMOGLOBIN 12.3 g/dl (12.0-15.5); MEAN CORPUSCULAR HEMOGLOBIN 30.4 pg (27.0-33.0); MEAN CORPUSCULAR HGB CONC 34.4 g/dl (32.0-36.5); MEAN CORPUSCULAR VOLUME 88.4 fl (80.0-96.0); PLATELET COUNT, AUTOMATED 359 10^3/uL (150-450); RED BLOOD COUNT 4.05 10^6/uL (4.00-5.40); WHITE BLOOD COUNT 12.4 10^3/uL (4.0-10.0)
[2023-09-11] MEDS ORDERED: LIDOCAINE 1% MDV 20ML VIAL INFIL PRN (07:05)
[2023-09-11] MEDS ORDERED: TRANEXAMIC ACID INJection 1,000 MG in NS 100 ML IV PRN (07:05)
[2023-09-11] MEDS ORDERED: METHYLERGONOVINE MALEATE 0.2MG/ML 1ML VIAL IM PRN (07:05)
[2023-09-11] MEDS ORDERED: ONDANSETRON 4MG 2ML VIAL IV PRN ×2 (07:35→07:40)
[2023-09-11] MEDS ORDERED: LR 500 ML IV PRN ×2 (07:35→07:40)
[2023-09-11] MEDS ORDERED: diphenhydrAMINE 50MG/ML VIAL IV PRN ×2 (07:35→07:40)
[2023-09-11] MEDS ORDERED: NALOXONE INJ 0.4MG/1ML VIAL IV PRN ×2 (07:35→07:40)
[2023-09-11] MEDS ORDERED: EPIDURAL/PCA KEYS XX PRN ×2 (07:35→07:40)
[2023-09-11] MEDS ORDERED: FENTANYL/ROPIVACAINE/NACL BAG 100 ML EPIDURAL SCH (07:35)
[2023-09-11] MEDS ORDERED: ePHEDrine SULFATE 25 MG/5 ML(5MG/ML) SYRINGE IVP PRN ×2 (07:35→07:40)
[2023-09-11] MEDS: FENTANYL/ROPIVACAINE/NACL BAG 100 ML EPIDURAL SCH (08:09)
[2023-09-11 09:46] LABS: HEPATITIS C VIRUS ABY INDEX < 0.02 INDEX (<0.8)
[2023-09-11] MEDS: OXYTOCIN DRIP 30 UNITS in IV 1 EA IV PRN (11:14)
[2023-09-11] MEDS ORDERED: ACETAMINOPHEN 500 MG TAB PO PRN (11:25)
[2023-09-11] MEDS ORDERED: ACETAMINOPHEN TAB 650MG DOSE (2X325MG) PO PRN (11:25)
[2023-09-11] MEDS ORDERED: METHYLERGONOVINE MALEATE 0.2 MG TAB PO PRN (11:25)
[2023-09-11] MEDS ORDERED: DIBUCAINE 1% OINTMENT 30GM TOP PRN (11:25)
[2023-09-11] MEDS ORDERED: IBUPROFEN 600MG TAB PO PRN (11:25)
[2023-09-11] MEDS ORDERED: RHO(D) IMMUNE GLOBULIN/MALTOSE 500MCG(2500IU)/2.2ML VIAL (WINRHO) IM SCH (11:25)
[2023-09-11] MEDS ORDERED: DOCUSATE SODIUM 100MG CAPSULE PO PRN (11:25)
[2023-09-11] MEDS: IBUPROFEN 800 MG TAB PO PRN (21:36)
[2023-09-12 06:00] VITALS: BP 113/57; O2SAT 99
[2023-09-12] MEDS: PRENATAL VITAMINS CHEWABLE TABLET PO SCH (08:49)
[2023-09-13] MEDS ORDERED: MEASLES,MUMPS,RUBELLA VACCINE INJ (MMR-II) SC.IMMUN ONE (09:00)
== END 2023-09-12 14:35 | disposition home or self-care (01) | DRG 560 ==
LOC: M LDO 05:02 → M LDI 05:35 → M OBS 13:58
PROVIDERS: ADMIT Obstetrics & Gynecology; ATTEND Advanced Practice Midwife
PROC: 10E0XZZ Delivery of Products of Conception, External Approach (ICD-10-PCS; principal; 2023-09-11)
DX: O80 Encounter for full-term uncomplicated delivery (principal); Z37.0 Single live birth; Z3A.39 39 weeks gestation of pregnancy

== ENCOUNTER → 2024-01-28 | Outpatient (CLI) | payer BC ==
[2024-01-28 11:30] LABS: BASO # 0.1 10^3/uL (0.0-0.2); BASO % 0.7 % (0.0-1.0); EOS # 0.1 10^3/uL (0.0-0.5); EOS % 1.1 % (0.0-3.0); HEMATOCRIT 39.1 % (36.0-47.0); HEMOGLOBIN 13.2 g/dl (12.0-15.5); LYMPH # 2.2 10^3/uL (1.5-5.0); MEAN CORPUSCULAR HEMOGLOBIN 29.7 pg (27.0-33.0); MEAN CORPUSCULAR HGB CONC 33.8 g/dl (32.0-36.5); MEAN CORPUSCULAR VOLUME 87.9 fl (80.0-96.0); MONO # 0.6 10^3/uL (0.0-0.8); NEUTROPHILS # 4.1 10^3/uL (1.5-8.5); NEUTROPHILS % 58.9 % (36.0-66.0); PLATELET COUNT, AUTOMATED 357 10^3/uL (150-450); RED BLOOD COUNT 4.45 10^6/uL (4.00-5.40)
[2024-01-28 11:35] LABS: ALBUMIN 3.9 G/DL (3.2-5.2); ALKALINE PHOSPHATASE 93 U/L (35-104); ALT/SGPT 25 U/L (7.0-40); AST/SGOT 14 U/L (<34); BILIRUBIN,TOTAL 0.5 MG/DL (0.3-1.2); BLOOD UREA NITROGEN 17 MG/DL (9-23); CALCIUM LEVEL 9.3 MG/DL (8.5-10.1); CARBON DIOXIDE LEVEL 27 MMOL/L (20-31); CHLORIDE LEVEL 108 MMOL/L (98-107); GLOMERULAR FILTRATION RATE > 60.0 (>60); GLUCOSE, FASTING 83 MG/DL (60-100); POTASSIUM SERUM 3.8 MMOL/L (3.5-5.1); SODIUM LEVEL 142 MMOL/L (136-145); TOTAL PROTEIN 7.5 G/DL (5.7-8.2)
[2024-01-28 11:37] LABS: FREE T4 0.99 NG/DL (0.89-1.76); THYROID STIMULATING HORMONE 2.462 uIU/ML (0.55-4.78); TOTAL 25(OH) VITAMIN D 37.3 NG/ML (20.0-100.0)
== END ==
LOC: M WUC 09:18
PROVIDERS: ATTEND Family Medicine
DX: E55.9 Vitamin D deficiency, unspecified (principal); Z13.29 Encounter for screening for other suspected endocrine disorder; Z13.0 Encounter for screening for diseases of the blood and blood-forming organs and certain disorders involving the immune mechanism

== ENCOUNTER → 2024-05-29 | Outpatient (REF) | payer BC ==
[2024-06-03 15:16] LABS: HPV APTIMA Not Detected (Not Detected)
== END ==
LOC: M SFHCWAGY 15:54
PROVIDERS: ATTEND Advanced Practice Midwife
DX: Z12.4 Encounter for screening for malignant neoplasm of cervix (principal)
CPT/HCPCS: 87624; G0123

== ENCOUNTER → 2025-02-16 | Outpatient (CLI) | payer BC ==
[2025-02-16 12:35] LABS: BASO # 0.1 10^3/uL (0.0-0.2); BASO % 0.8 % (0.0-1.0); EOS # 0.1 10^3/uL (0.0-0.5); EOS % 2.1 % (0.0-3.0); LYMPH # 2.4 10^3/uL (1.5-5.0); LYMPH % 36.3 % (24.0-44.0); MONO # 0.5 10^3/uL (0.0-0.8); MONO % 6.9 % (2.0-8.0); NEUTROPHILS # 3.5 10^3/uL (1.5-8.5); NEUTROPHILS % 53.4 % (36.0-66.0); PLATELET COUNT, AUTOMATED 373 10^3/uL (150-450)
[2025-02-16 13:00] LABS: ALT/SGPT 24 U/L (7.0-40); AST/SGOT 15 U/L (<34); CALCIUM LEVEL 9.7 MG/DL (8.5-10.1); CARBON DIOXIDE LEVEL 27 MMOL/L (20-31); CHLORIDE LEVEL 105 MMOL/L (98-107); CREATININE FOR GFR 0.66 MG/DL (0.55-1.30); FREE T4 0.97 NG/DL (0.89-1.76); GLOMERULAR FILTRATION RATE > 90.0 (>60); POTASSIUM SERUM 4.3 MMOL/L (3.5-5.1); SODIUM LEVEL 141 MMOL/L (136-145)
[2025-02-16 13:01] LABS: TOTAL 25(OH) VITAMIN D 35.1 NG/ML (20.0-100.0)
== END ==
LOC: M WUC 08:34
PROVIDERS: ATTEND Family Medicine
DX: E55.9 Vitamin D deficiency, unspecified (principal); Z13.29 Encounter for screening for other suspected endocrine disorder; Z13.0 Encounter for screening for diseases of the blood and blood-forming organs and certain disorders involving the immune mechanism